=== PATIENT | male | born 1965 | race Hispanic/Latino ===

== ENCOUNTER 2017-01-19 12:16 | Emergency (ER) | payer MEDICAID ==
[2017-01-19 12:20] VITALS: BP 132/72; PULSE 89; RESP 16; TEMP 97; O2SAT 100
--- NOTE | 2017-01-19 12:58 | ED PDOC ---
HPI: Skin/Bite Injury Time Seen by Provider: 01/19/17 12:24 Chief Complaint (Nursing): Allergic Reaction Chief Complaint (Provider): Skin Issue History Per: Patient History/Exam Limitations: no limitations Onset/Duration Of Symptoms: Days (x5) Current Symptoms Are (Timing): Still Present Location Of Injury: Left: Foot Quality Of Symptoms: Other (Rash) Additional Complaint(s): 51 year old male presents to ED with complaints of a mildly painful rash x5 days and has no relevant past medical history. (+) cough and sore throat. (-) fever, SOB, hemoptysis, or sick contacts. Patient localizes rash to the left aspect of his face and notes that it has progressively worsened over time, prompting his ED visit. PCP: None Past Medical History Reviewed: Historical Data Vital Signs: Last Vital Signs Temp 97 F L 01/19/17 12:17 Pulse 89 01/19/17 12:17 Resp 16 01/19/17 12:17 BP 132/72 01/19/17 12:17 Pulse Ox 100 01/19/17 14:17 - Medical History PMH: Bipolar Disorder Denies: No Chronic Diseases - Surgical History Surgical History: No Surg Hx - Family History Family History: States: No Known Family Hx - Social History Current smoker - smoking cessation education provided: No Ex-Smoker (has not smoked in the last 12 months): No Alcohol: None Drugs: Denies - Home Medications Home Medications: Ambulatory Orders Medication Instructions Recorded Acyclovir 5% [Zovirax 5% Ointment] 1 appl EXT 5XD #1 tube 01/19/17 Acyclovir [Zovirax] 800 mg PO 5XD #35 tab 01/19/17 Azithromycin [Zithromax] 250 mg PO DAILY #6 tab 01/19/17 Benzonatate [Tessalon Perle] 100 mg PO Q8 PRN #30 capsule 01/19/17 Ciprofloxacin/Dexamethasone 4 drop BID #1 bottle 01/19/17 [Ciprodex 0.3%-0.1% 7.5 Ml] - Allergies Allergies/Adverse Reactions: Allergies Allergy/AdvReac Type Severity Reaction Status Date / Time No Known Allergies Allergy Verified 01/19/17 12:17 Review of Systems ROS Statement: Except As Marked, All Systems Reviewed And Found Negative Constitutional: Negative for: Fever ENT: Positive for: Throat Pain Respiratory: Positive for: Cough. Negative for: Shortness of Breath, Hemoptysis Skin: Positive for: Rash (mild painful rash on left side of face) Physical Exam - Reviewed Nursing Documentation Reviewed: Yes Vital Signs Reviewed: Yes - Physical Exam Appears: Positive for: Well, Non-toxic, No Acute Distress Head Exam: Positive for: ATRAUMATIC, NORMOCEPHALIC Skin: Positive for: Warm, Dry, Rash (group vesicles on erythematous base scattered on left side of face. Rash extends into left parietal scalp. Negative Fernandez's sign). Negative for: Normal Color Eye Exam: Positive for: Normal appearance ENT: Positive for: TM Is/Are (left ear canal has moderate erythema, minimum edema.), Pharyngeal Erythema (moderate), Other ((+) pain with pulling on tragus. (-) mastoid tenderness. Able to swallow saliva). Negative for: Normal ENT Inspection, Tonsillar Exudate Neck: Positive for: Normal, Painless ROM, Supple Cardiovascular/Chest: Positive for: Regular Rate, Rhythm. Negative for: Murmur Respiratory: Positive for: Normal Breath Sounds. Negative for: Respiratory Distress Gastrointestinal/Abdominal: Positive for: Normal Exam, Soft. Negative for: Tenderness Back: Positive for: Normal Inspection Extremity: Positive for: Normal ROM. Negative for: Deformity Neurologic/Psych: Positive for: Alert, Oriented. Negative for: Motor/Sensory Deficits - Laboratory Results Result Diagrams: 01/19/17 13:31 01/19/17 13:31 - ECG O2 Sat by Pulse Oximetry: 100 (RA) Pulse Ox Interpretation: Normal - Radiology X-Ray: Interpreted by Me (CXR) X-Ray Interpretation: No Acute Disease - Progress ED Course And Treament: 1430 Case d/w Dr. Montalvo who agrees with disposition. Pt. informed of plan and agrees. Instructed to f/u with PMD for further evaluation. Medical Decision Making Medical Decision Makin Initial impression: UTI, otitis externa, shingles Initial plan: * VBG shock panel * Labs * CXR * BCx * Urine C&S * Influenza A B * Rapid strep * UA 1327 CXR FINDINGS: LUNGS: No active pulmonary disease. PLEURA: No significant pleural effusion identified. No pneumothorax apparent. CARDIOVASCULAR: Normal. OSSEOUS STRUCTURES: No significant abnormalities. VISUALIZED UPPER ABDOMEN: Normal. OTHER FINDINGS: None. IMPRESSION: No active disease. Scribe Attestation: Documented by Priyanka Taylor, acting as a scribe for William Suárez. Provider Scribe Attestation: All medical record entries made by the Scribe were at my direction and personally dictated by me. I have reviewed the chart and agree that the record accurately reflects my personal performance of the history, physical exam, medical decision making, and the department course for this patient. I have also personally directed, reviewed, and agree with the discharge instructions and disposition. Disposition - Clinical Impression Clinical Impression: Shingles, Otitis externa, URI (upper respiratory infection) - Disposition Referrals: [facility] [Outside] Disposition: Routine/Home Disposition Time: 14:51 Condition: STABLE Prescriptions: Acyclovir [Zovirax] 800 mg PO 5XD #35 tab Acyclovir 5% [Zovirax 5% Ointment] 1 appl EXT 5XD #1 tube Azithromycin [Zithromax] 250 mg PO DAILY #6 tab Benzonatate [Tessalon Perle] 100 mg PO Q8 PRN #30 capsule PRN Reason: Cough Ciprofloxacin/Dexamethasone [Ciprodex 0.3%-0.1% 7.5 Ml] 4 drop BID #1 bottle Instructions: Shingles (ED), Upper Respiratory Infection (ED), Otitis Externa ( ED) Forms: [employer] ([place]) Print Language: RWANDAN
--- NOTE | 2017-01-19 13:29 | RAD ---
HISTORY: cough COMPARISON: No prior. TECHNIQUE: Chest PA and lateral FINDINGS: LUNGS: No active pulmonary disease. PLEURA: No significant pleural effusion identified. No pneumothorax apparent. CARDIOVASCULAR: Normal. OSSEOUS STRUCTURES: No significant abnormalities. VISUALIZED UPPER ABDOMEN: Normal. OTHER FINDINGS: None. IMPRESSION: No active disease.
[2017-01-19 13:39] LABS: BASO % 0.8 % (0.0-2.0); EOS % 0.5 % (0.0-4.0); HEMATOCRIT 47.8 % (35.0-51.0); LYMPH # 1.5 K/uL (1.0-4.3); LYMPH % 26.8 % (20.0-40.0); MEAN PLATELET VOLUME 8.2 fl (7.2-11.7); MONO # 1.1 K/uL (0.0-0.8); MONO % 20.3 % (0.0-10.0); NEUT # 2.8 K/uL (1.8-7.0); NEUT % 51.6 % (50.0-75.0); NRBC % 0.4 % (0.0-0.0); PLATELET COUNT 151 K/uL (130-400); RED CELL DISTRIBUTION WIDTH 13.1 % (11.5-14.5); WHITE BLOOD COUNT 5.4 K/uL (4.8-10.8)
[2017-01-19 13:43] LABS: VENOUS BLOOD GAS BASE EXCESS 9.9 mmol/L (0.0-2.0); VENOUS BLOOD GAS PCO2 63 mmHg (40-60); VENOUS BLOOD PH 7.39 (7.32-7.43)
[2017-01-19 14:00] LABS: ALB/GLOB RATIO 1.3 (1.0-2.1); ALKALINE PHOSPHATASE 40 U/L (38-126); ALT/SGPT 40 U/L (21-72); AST/SGOT 33 U/L (17-59); BILIRUBIN,TOTAL 0.8 mg/dl (0.2-1.3); BLOOD UREA NITROGEN 19 mg/dl (9-20); CALCIUM 10.2 mg/dL (8.4-10.2); CARBON DIOXIDE 32 mmol/L (22-30); CHLORIDE 95 mmol/L (98-107); GFR AFRICAN-AMERICAN > 60; GLUCOSE,RANDOM 104 mg/dL (75-110); POTASSIUM 4.3 MMOL/L (3.6-5.0); SODIUM 139 mmol/l (132-148); TOTAL PROTEIN 8.4 G/DL (6.3-8.2)
[2017-01-19 14:23] LABS: BASOPHIL 1 % (0-2); NEUTROPHIL 70 % (42-75); TOTAL CELLS COUNTED 100
[2017-01-19 14:24] LABS: LARGE PLATELETS PRESENT
== END 2017-01-19 15:25 | disposition home or self-care (01) ==
LOC: H.ER 12:16
DX: B02.9 Zoster without complications (principal); J06.9 Acute upper respiratory infection, unspecified; F31.9 Bipolar disorder, unspecified; H60.90 Unspecified otitis externa, unspecified ear